=== PATIENT | male | born 1970 | race African-American/Black ===

== ENCOUNTER 2018-12-06 05:28 | Day surgery (SDC) | payer MEDICARE, MEDICAID ==
--- NOTE | 2018-12-04 16:00 | Pre-op HX & Phy Repo 2 SIG ---
DATE OF ADMISSION: 12/06/2018 DATE OF SURGERY: 12/06/2018 PREOPERATIVE DIAGNOSIS: Vitreous hemorrhage with traction, right eye. BRIEF NOTE: This is the first [facility] admission for the patient who is a very nice 48-year-old gentleman with a history of diabetes and kidney disease. Diabetes is since 1999. He was noted to have a significant vitreous hemorrhage with mild posterior traction and is admitted for pars plana vitrectomy in the right eye. PAST MEDICAL HISTORY: Again remarkable for diabetes since 1999, elevated cholesterol since 2008, hypertension since 2009, and progressive kidney disease, which has required dialysis since 2018. PAST OCULAR HISTORY: Remarkable for prior intravitreal injections and panretinal laser in both eyes. The most recent injections in the right eye on 12/01/2018. PAST SURGICAL HISTORY: He has had prior surgery including amputation of his right leg and toes on the left. MEDICATIONS: He is maintained on amlodipine and clonidine as well as insulin. ALLERGIES: He is allergic to vancomycin and Cipro. PHYSICAL EXAMINATION: Best vision at the time of admission was 24/100 in the right eye, 23/100 in the left with pressures of 20 on each side. There were sluggish pupillary reactions. The anterior segment showed nuclear sclerosis just 2+ in either eye as well as cortical opacities. Fundus examination showed vitreous hemorrhages bilaterally. The fundi could not be clearly seen. Ultrasound studies were done on either eye and showed moderately dense mobile vitreous hemorrhage with posterior hyaloidal elevation. ASSESSMENT: Proliferative diabetic retinopathy, both eyes with vitreous hemorrhages and traction. PLAN: The plan is to perform a pars plana vitrectomy with membrane dissection, endolaser, Avastin injection, and either gas or silicone oil as needed. The risks and benefits of surgery have been gone over with the patient including potential infection, hemorrhage, cataract formation, the need for additional operations, and the possibility of loss of the eye. The risk of anesthesia was discussed. The patient understands and consents to surgery on the right eye, which will be done on Tuesday morning. Cesar Min M.D. DR: MARY JOB#: [id number] CC:
[2018-12-06] VITALS (10 sets, daily range): BP systolic 135–155; BP diastolic 76–90
[~2018-12-06] VITALS: Ht 182.9 cm; Wt 84.4 kg
[~2018-12-06 05:28] MED LIST: CATAPRES0.3 MG ORAL; NORVASC10 MG ORAL
[2018-12-06] MEDS ORDERED: Pred Forte 1% Opth Susp 1ml RIGHT EYE ONE (06:00)
[2018-12-06] MEDS: Cyclopentolate 1% Opth Sol 2ml RIGHT EYE SCH ×3 (06:11→06:47)
[2018-12-06] MEDS: Vigamox Opth Soln 3ml RIGHT EYE SCH ×3 (06:12→06:47)
[2018-12-06] MEDS: Phenylephrine 2.5% Op 2ml Soln RIGHT EYE SCH ×3 (06:12→06:47)
[2018-12-06] MEDS: Flurbiprofen 0.03% Opth Sol 2.5ml RIGHT EYE SCH ×3 (06:12→06:47)
[2018-12-06] MEDS ORDERED: fentaNYL 100 mcg/2 mL IV ONE (07:04)
[2018-12-06] MEDS ORDERED: Midazolam 2mg/2ml Inj ONE (07:04)
[2018-12-06] MEDS ORDERED: Kenalog-40 1ml Vial ONE (07:09)
[2018-12-06] MEDS ORDERED: EPINEPHrine 1mg/1ml Amp ONE (07:09)
[2018-12-06] MEDS ORDERED: Lidocaine 2% MPF 5ml Vial INJ ONE (07:09)
[2018-12-06] MEDS ORDERED: Polysporin Opth Oint 3.5gm ONE (07:10)
[2018-12-06] MEDS ORDERED: BSS 500ml btl ONE (07:10)
[2018-12-06] MEDS ORDERED: Dexamethasone 4mg/ml vial ONE (07:10)
[2018-12-06] MEDS ORDERED: BSS 15ml BTL ONE (07:10)
[2018-12-06] MEDS ORDERED: Povidone-Iodine 5% opth solution ONE (07:10)
[2018-12-06] MEDS ORDERED: Pred Forte 1% Opth Susp 1ml ONE (07:10)
[2018-12-06] MEDS ORDERED: Kenalog-10 5ml Inj ONE (07:10)
[2018-12-06] MEDS ORDERED: Sodium Hyaluronate 10 mg/ml 0.85ml ONE (07:11)
[2018-12-06] MEDS ORDERED: Tetracaine 0.5% Opth 4ml Soln ONE (07:11)
[2018-12-06] MEDS ORDERED: Bupivacaine 0.75% 30ml vial INJ ONE (07:11)
[2018-12-06] MEDS ORDERED: NS Irrig 1000ml ONE (07:30)
[2018-12-06] MEDS ORDERED: Sterile Water Irrig 1000ml IRRIG ONE (07:30)
[2018-12-06] MEDS ORDERED: Propofol 200mg/20ml IV ONE (07:30)
[2018-12-06] MEDS ORDERED: Hyaluronidase 150 units/ml vial ONE (07:31)
--- NOTE | 2018-12-06 07:44 | Pre-Procedure Note/Attestation ---
Pre-Procedure Note/Attestation Complete Prior to Procedure Planned Procedure: right Procedure Narrative: PPV, membrane peel, endolaser. possible silicone oil RIGHT eye Indications for Procedure Pre-Operative Diagnosis: Vitreous hemorrhage with traction RIGHT eye Attestation I attest that I discussed the nature of the procedure; its benefits; risks and complications; and alternatives (and the risks and benefits of such alternatives ), prior to the procedure, with the patient (or the patient's legal financial service representative). I attest that, if there was a reasonable possibility of needing a blood transfusion, the patient (or the patient's legal financial service representative) was given the [facility] standardized written summary, pursuant to the Bertin Willie Blood Safety Act ([place] Health and Safety Code # 1645, as amended). I attest that I re-evaluated the patient just prior to the surgery and that there has been no change in the patient's H&P, except as documented below: Cesar Min MD Dec 06, 2018 07:44
--- NOTE | 2018-12-06 08:17 | Anethesia Preoperative Eval ---
Anesthesia Pre-op PMH/ROS General Date of Evaluation: Dec 06, 2018 Time of Evaluation: 07:10 Anesthesiologist: Westley ASA Score: ASA 3 Mallampati Score Class I : Soft palate, uvula, fauces, pillars visible Class II: Soft palate, uvula, fauces visible Class III: Soft palate, base of uvula visible Class IV: Only hard plate visible Mallampati Classification: Class II Surgeon: Pako Diagnosis: Diabetic retinopathy Surgical Procedure: R eye PPV Anesthesia History: none Allergies: Coded Allergies: CIPROFLOXACIN (Verified Allergy, Severe, 12/04/18) rash,iitching,hives HYDROMORPHONE (Verified Allergy, Severe, 12/04/18) ITCHING VANCOMYCIN (Verified Allergy, Severe, 12/04/18) RASH,ITCHING,HIVES Medications: see eMAR Patient NPO?: Yes Past Medical History Cardiovascular: Reports: HTN, other - PVD; Denies: CAD, MD, valve dz, arrhythmia Pulmonary: Denies: asthma, COPD, JORGE, other Gastrointestinal/Genitourinary: Reports: GERD, ESRD - on HD ; Denies: CRI, other Neurologic/Psychiatric: Reports: CVA - L sided weakness, depression/anxiety; Denies: dementia, TIA, other Endocrine: Reports: DM - poorly controled; Denies: hypothyroidism, steroids, other HEENT: Reports: other - bilateral retinopathy; Denies: cataract (L), cataract (R), glaucoma, CHEVAK (L), CHEVAK (R) Hematology/Immune: Reports: anemia - of chronic d-s; Denies: DVT, bleeding disorder, other Musculoskeletal/Integumentary: Reports: other - s/p R BKA, L transmetarsal amputation; Denies: OA, RA, DJD, DDD, edema PMH Narrative: as above PSxH Narrative: L arm A-V shunt, bilateral lower extremities amputation Anesthesia Pre-op Phys. Exam Physician Exam Last Vital Signs Date Time Temp Pulse Resp B/P (MAP) Pulse Ox O2 Delivery O2 Flow Rate FiO2 12/06/18 06:27 97.6 81 20 145/77 98 Room Air Constitutional: NAD Neurologic: CN 2-12 intact Cardiovascular: RRR, no M/R/G Respiratory: CTA Gastrointestinal: S/NT/ND Airway Exam Mallampati Score: Class II MO: limited Neck: stiff ROM: limited Teeth: missing Dentures: no upper, no lower Anesthesia Pre-op A/P Labs Chemistry Test 12/06/18 06:10 Potassium Level 4.6 MMOL/L (3.5-5.1) Studies Pre-op Studies: EKG - SR Risk Assessment & Plan Assessment: ASA 3 Plan: MAc with retrobulbar block Status Change Before Surgery: No Oj Christy MD Dec 06, 2018 08:17
[2018-12-06] MEDS ORDERED: DiphenhydrAMINE 50mg/ml Inj IVP PRN (08:30)
[2018-12-06] MEDS ORDERED: fentaNYL 100 mcg/2 mL IV PRN (08:30)
--- NOTE | 2018-12-06 08:57 | Brief Operative Note ---
Immediate Post Operative Note Operative Note Chief Complaint: Clouds in vision RIGHT eye Pre-op Diagnosis: Vitreous hemorrhage with traction RIGHT eye Procedure: PPV, membrane peel, Endolaser 1595 spots RIGHT eye Post-op Diagnosis: same as pre-op Surgeon: Pako Anesthesiologist: Westley Anesthesia: MAC Specimen: none Complications: none Condition: stable Fluids: Per Anesthesia Estimated Blood Loss: none Drains: none Implant(s) used?: No Cesar Min MD Dec 06, 2018 08:57
--- NOTE | 2018-12-06 09:04 | Immediate Post-Op Evaluation ---
Immediate Post-Op Evalulation Immediate Post-Op Evalulation Procedure: R eye PPV membrane peel laser treatment Date of Evaluation: Dec 06, 2018 Time of Evaluation: 09:03 IV Fluids: 300 Blood Products: none Estimated Blood Loss: min Urinary Output: none Blood Pressure Systolic: 146 Blood Pressure Diastolic: 87 Pulse Rate: 82 Respiratory Rate: 18 O2 Sat by Pulse Oximetry: 98 Temperature (Fahrenheit): 97.8 Pain Score (1-10): 1 Nausea: No Vomiting: No Complications none Patient Status: awake, patent, none Hydration Status: adequate Oj Christy MD Dec 06, 2018 09:04
--- NOTE | 2018-12-06 10:32 | 48 Hour Post Anesthesia Eval ---
Post Anesthesia Evaluation Procedure: R eye PPV membrane peel laser treatment Date of Evaluation: Dec 06, 2018 Time of Evaluation: 10:30 Blood Pressure Systolic: 152 0: 76 Pulse Rate: 86 Respiratory Rate: 20 Temperature (Fahrenheit): 97.6 O2 Sat by Pulse Oximetry: 98 Airway: patent Nausea: No Vomiting: No Pain Intensity: 1 Hydration Status: adequate Cardiopulmonary Status: stable Mental Status/LOC: patient returned to baseline Follow-up Care/Observations: n/a Post-Anesthesia Complications: none Follow-up care needed: ready to discharge Oj Christy MD Dec 06, 2018 10:32
--- NOTE | 2018-12-08 11:54 | Operative Note - Dictated ---
DATE OF OPERATION: 12/06/2018 PREOPERATIVE DIAGNOSIS: Extensive vitreous hemorrhage with traction, right eye. POSTOPERATIVE DIAGNOSIS: Extensive vitreous hemorrhage with traction, right eye. PROCEDURES PERFORMED: 1. Pars plana vitrectomy. 2. Membrane elevation and peeling. 3. Endolaser, right eye. SURGEON: Cesar Min M.D. SOLAR SALES ENERGY ADVISOR: None. ANESTHESIA: Local with sedation. ANESTHESIOLOGIST: Oj Christy M.D. JUSTIFICATION FOR SURGERY: This 48-year-old gentleman with a long history of diabetes, developed severe bilateral vitreous hemorrhaging with posterior traction. BRIEF NOTE: The patient brought to the operative room, placed on OR table in supine position. After a time-out was performed and agreed upon by the staff, and initial monitoring secured by Dr. Christy, retrobulbar and Van Lint blocks were given in the standard way. When the blocks taken effect, he was prepped and draped in normal manner. The lid speculum was inserted into the right eye. Using a 23-gauge trocar system, cannulas were placed in all except the inferonasal quadrant. Infusion secured inferotemporally. Vitrectomy was begun posterior to the lens taking care to avoid contact. A moderately dense posterior subcapsular cataract was seen. It was felt the surgery could be completed without removing the lens. A central core vitrectomy was done followed by peripheral vitrectomy leaving a small vitreous skirt. A section of vitreous with clot attached to the lens inferiorly was left because of the damage to the posterior capsule. This was not for vitrectomy. Once vitrectomy was carried posteriorly, traction was noted extending from the optic nerve, on to the upper nasal periphery. This was gently and peeled and it cut away without damage to retina. A minimal amount of laser was noted nasally and superiorly. The endolaser was brought into the eye and a power of 0.4 brush and duration of 0.1 seconds, a total of 1595 lesions were applied in a broad band of laser extending from posterior to the equator to near the . This went without difficulty. Scleral depression was performed and no peripheral breaks, tears, detachments were seen. The instruments were removed from the eye and through a cutdown and conjunctiva and tenons capsule temporally, the sclerotomies were closed with 8-0 Vicryl. The supranasal sclerotomy was closed with a single suture of 8-0 Vicryl suture. Conjunctiva with the knots buried. Overlying conjunctiva temporally was closed with 6-0 plain catgut. Subconjunctival Decadron and gentamicin were then injected and topical prednisolone drops, moxifloxacin drops, atropine drops, and Maxitrol ointment were instilled. The eye was patched and shielded and the patient taken to recovery in excellent condition. There were no complications. Cesar Min M.D. DR: ASHLEY JOB#: [id number] CC: Cesar Min M.D.; Fax#: [phone]
== END 2018-12-06 10:15 | disposition home or self-care (01) ==
LOC: SUR 05:28
DX: H43.11 Vitreous hemorrhage, right eye (principal); E11.3521 Type 2 diabetes mellitus with proliferative diabetic retinopathy with traction retinal detachment involving the macula, right eye; E11.22 Type 2 diabetes mellitus with diabetic chronic kidney disease; I12.9 Hypertensive chronic kidney disease with stage 1 through stage 4 chronic kidney disease, or unspecified chronic kidney disease; N18.9 Chronic kidney disease, unspecified; E78.00 Pure hypercholesterolemia, unspecified; I73.9 Peripheral vascular disease, unspecified; I25.10 Atherosclerotic heart disease of native coronary artery without angina pectoris; I63.9 Cerebral infarction, unspecified; I10 Essential (primary) hypertension; Z89.511 Acquired absence of right leg below knee; Z79.899 Other long term (current) drug therapy; Z79.4 Long term (current) use of insulin; Z88.8 Allergy status to other drugs, medicaments and biological substances; Z89.611 Acquired absence of right leg above knee; Z89.422 Acquired absence of other left toe(s)
CPT/HCPCS: 36415; 67039; 67042; 82962; 84132; J0171; J1100; J2250; J2704; J3010; J3470; J3490; 94003; 94150; J7030